=== PATIENT | female | born 1940 | race Caucasian/White ===

== ENCOUNTER 2021-08-04 16:13 | Emergency (ER) | payer OTHER, BC ==
[~2021-08-04] VITALS: Ht 167.6 cm; Wt 61.2 kg
[2021-08-04 19:22] VITALS: BP 121/74
== END 2021-08-04 19:24 | disposition home or self-care (01) ==
LOC: ER 16:13
DX: M25.562 Pain in left knee (principal); R51.9 Headache, unspecified; J02.9 Acute pharyngitis, unspecified; Z90.89 Acquired absence of other organs; Z90.49 Acquired absence of other specified parts of digestive tract